=== PATIENT | female | born 1980 | race Caucasian/White ===

== ENCOUNTER 2017-06-20 12:22 | Emergency (ER) | payer OTHER ==
[2017-06-20 12:40] VITALS: BP 151/79; PULSE 81; RESP 18; TEMP 99.4
--- NOTE | 2017-06-20 13:22 | ED ---
ENT HPI - General Chief complaint: Dental/Oral Stated complaint: dental pain Time Seen by Provider: 06/20/17 12:56 Source: patient, RN notes reviewed Mode of arrival: ambulatory Limitations: no limitations - History of Present Illness Initial comments: This is a 36-year-old female who presents to the emergency department with chief complaint of dental pain. Patient states that she believes she developed a dental infection last evening. She complains of pain and swelling to her right cheek. She complains of lower dental pain. Patient states that in 2 weeks she is going to be having all of her back molars pulled and replaced with fake ones. Patient states that she has been clean for the past 2 years and has very poor teeth. She states that she has been taking ibuprofen 800 with minimal relief. She requests a "Vicodin." Denies fever, chills, chest pain, shortness of breath, abdominal pain, nausea or vomiting, numbness or tingling, headache or vision changes. She does report some jaw pain but denies any radiation to the neck. - Related Data Previous Rx's Medication Instructions Recorded Clindamycin [Cleocin] 450 mg PO Q8HR #90 capsule 03/30/15 Docusate [Colace] 100 mg PO DAILY #30 capsule 03/30/15 traMADol HCl [Ultram] 50 mg PO Q4H PRN #20 tab 03/30/15 Ibuprofen 600 mg PO Q6HR #20 tablet 06/20/17 Penicillin V Potassium [Pen Vee K] 500 mg PO QID 10 Days tab 06/20/17 Allergies Allergy/AdvReac Type Severity Reaction Status Date / Time sulfamethoxazole Allergy Rash/Hives Verified 06/20/17 12:39 [From Bactrim] trimethoprim [From Bactrim] Allergy Rash/Hives Verified 06/20/17 12:39 Review of Systems ROS Statement: Those systems with pertinent positive or pertinent negative responses have been documented in the HPI. ROS Other: All systems not noted in ROS Statement are negative. Past Medical History Past Medical History: No Reported History History of Any Multi-Drug Resistant Organisms: None Reported Additional Past Surgical History / Comment(s): D&C X 2 Past Psychological History: No Psychological Hx Reported Smoking Status: Current every day smoker Past Alcohol Use History: None Reported Past Drug Use History: None Reported General Exam - General Exam Comments Initial Comments: General: Awake and alert, well-developed; in no apparent distress. HEENT: Head atraumatic, normocephalic. Mild swelling noted to the right cheek. Pupils are equal, round and reactive to light. Extraocular movements intact. Oropharynx moist without erythema or exudate. Very poor dentition throughout with multiple missing teeth, fractured teeth and dental caries. Tenderness on palpation of bilateral lower molar gum lines. No masses or areas of fluctuance noted. Neck: Supple. Normal ROM. No tenderness. Cardiovascular: Regular rate and rhythm. No murmurs, rubs or gallops. Chest symmetrical. Respiratory: Lungs clear to auscultation bilaterally. No wheezes, rales or rhonchi. Normal respiratory effort with no use of accessory muscles. Musculoskeletal: Normal ROM, no tenderness bilateral upper and lower extremities. Ambulating normally. Skin: Twining, warm and dry without rashes or lesions. Neurological: Alert and oriented x3. CN II-XII grossly intact. Speech is fluent and answers are appropriate. No focal neuro deficits. Psychiatric: Normal mood and affect. No overt signs of depression or anxiety noted. Limitations: no limitations Course Vital Signs 06/20/17 12:36 Temperature 99.4 F Pulse Rate 81 Respiratory 18 Rate Blood Pressure 151/79 O2 Sat by Pulse 99 Oximetry Medical Decision Making - Medical Decision Making This is a 36-year-old female who presents to the emergency department with chief complaint of dental pain. She does have an upcoming appointment with her dentist to have all of her teeth extracted. She currently complains of bilateral lower dental pain. No masses or areas of fluctuance were noted. Patient does have some right sided cheek swelling and tenderness on palpation of the jaw line. Patient did request to have a Vicodin. I ran [facility] and it was noted that patient had Zubsolv, a medication prescribed for opioid dependence, prescribed on June 17. Patient will not be given any narcotics or controlled substances at this time. She will be prescribed penicillin VK and ibuprofen. When I discussed this with patient she became very agitated. She is in no acute distress and will be discharged home. Disposition Clinical Impression: Toothache, Dental caries Disposition: HOME SELF-CARE Condition: Good Instructions: Dental Caries (ED), Toothache (ED) Additional Instructions: Please take medications as prescribed. Please follow up with primary care provider within 1-2 days. Return to emergency department if symptoms should worsen or any concerns arise. Prescriptions: Ibuprofen 600 mg PO Q6HR #20 tablet Penicillin V Potassium [Pen Vee K] 500 mg PO QID 10 Days tab Referrals: Jaleesa Tran MD [Primary Care Provider] - 1-2 days Time of Disposition: 13:25
== END 2017-06-20 13:29 | disposition home or self-care (01) ==
LOC: EC 12:22
DX: K02.9 Dental caries, unspecified (principal); F17.200 Nicotine dependence, unspecified, uncomplicated; Z88.2 Allergy status to sulfonamides
CPT/HCPCS: 99282